=== PATIENT | female | born 1995 | race Asian ===

== ENCOUNTER 2023-07-23 05:36 | Emergency (ER) | payer OTHER, SELFPAY ==
--- NOTE | 2023-07-23 05:39 | ED.GENADULT ---
HPI - General Adult General Chief complaint: Abdominal Pain Stated complaint: abd pain, dizzy, light headed Time Seen by Provider: 07/23/23 05:39 History of Present Illness HPI narrative: 27-year-old female nonsmoker with noncontributory medical history presents with her significant other and a chief complaint of gradually worsening lower, if not right lower quadrant pain over the past few hours. She states she was in her normal state of health yesterday and went to bed feeling fine, without pain or nausea. She awoke this morning with periumbilical pain that seems to be worsening in her lower abdomen over the past few hours. It is worse when she moves and improves with rest. Standing seems to worsen the pain and makes her a bit lightheaded. She states that the car ride and she felt quite uncomfortable but remaining still she is okay. She denies fever or chills. She is had no constipation or diarrhea. She denies any dysuria, frequency or urgency. She denies vaginal bleeding or discharge. Her last period was about 2 weeks ago and normal for her. She denies any history of the same, she has no history of abdominal surgeries. Related Data Previous Rx's Medication Instructions Recorded cephalexin 500 mg capsule 500 mg PO Q6H 7 days #28 caps 07/23/23 ketorolac 10 mg tablet 10 mg PO Q6H PRN pain #14 tabs 07/23/23 ondansetron 4 mg disintegrating 4 mg PO TID-QID PRN nausea and 07/23/23 tablet vomiting #10 tabs Allergies Allergy/AdvReac Type Severity Reaction Status Date / Time jorge Allergy Verified 07/23/23 05:49 Review of Systems Review of Systems Narrative: GENERAL: Denies chills, fatigue, malaise, fever, sweats. HEENT: Denies sinus pain, ear pain, sore throat, difficulty swallowing, dizziness. RESPIRATORY: Denies dyspnea, cough, wheezing, hemoptysis, sputum. CARDIOVASCULAR: Denies chest pain, palpitations, orthopnea, edema, GASTROINTESTINAL: See HPI : See HPI MUSCULOSKELETAL: denies weakness, joint pain, or bony pain SKIN: Denies rash, skin lesions, or other NEUROLOGIC: Denies weakness, headache, numbness, change in speech, confusion, seizures, incoordination. PSYCHIATRIC: No concerning psychosocial issues. 12 point review of systems is negative except for those stated above Exam Narrative Exam Narrative: GENERAL: [27] year old patient appears stated age. Well-developed patient, in mild distress. HEAD: Atraumatic. Normocephalic. EYES: Pupils equal round and reactive. Extraocular motions intact. No scleral icterus. No injection or drainage. ENT: Nose without bleeding, purulent drainage. Throat without erythema, tonsillar hypertrophy or exudate. Airway patent. NECK: Trachea midline. Non tender CARDIOVASCULAR: Regular rate and rhythm without murmurs, gallops, or rubs. RESPIRATORY: Clear to auscultation. Breath sounds equal bilaterally. No wheezes, rales, or rhonchi. GASTROINTESTINAL: Abdomen soft, tender in the suprapubic region, perhaps right lower quadrant greater than left, negative heel tap, psoas or obturator nondistended. EXTREMITIES: No edema or joint tenderness. BACK: Nontender without deformity or crepitance. No flank tenderness. NEURO: AOx3. SKIN: No rash or erythema of visible areas Initial Vital Signs Initial Vital Signs: Vital Signs Temperature 98.6 F 07/23/23 05:45 Pulse Rate 80 07/23/23 05:45 Respiratory Rate 16 07/23/23 05:45 Blood Pressure 113/71 07/23/23 05:45 Pulse Oximetry 100 07/23/23 05:45 Oxygen Delivery Method Room Air 07/23/23 05:45 Course Orders Ordered: Discontinued Medications Cefazolin Sodium (Cephalexin 250 Mg Cap Prepack) [address] [facility] [place] Stop: 07/23/23 06:23 Last Admin: 07/23/23 06:29 Dose: 1 bottle Documented By: Sodium Chloride (Normal Saline 0.9%) 1,000 mls @ 1,000 mls/hr IV BOLUS ONE Stop: 07/23/23 06:44 Last Infusion: 07/23/23 06:56 Dose: 0 mls/hr Documented By: Admin: 07/23/23 05:53 Dose: 1,000 mls/hr Documented By: Ketorolac Tromethamine (Ketorolac 30 Mg/Ml Vial) 15 mg IV NOW ONE Stop: 07/23/23 06:23 Last Admin: 07/23/23 06:29 Dose: 15 mg Documented By: Ondansetron HCl (Ondansetron 4 Mg Odt Prepack) 1 bottle MISC [facility] ONE Stop: 07/23/23 06:23 Last Admin: 07/23/23 06:30 Dose: Not Given Documented By: Medical Decision Making Lab Data 07/23/23 05:40 07/23/23 05:40 Labs: Lab Results 07/23/23 07/23/23 07/23/23 Range/Units 05:40 05:40 06:04 WBC 6.0 (4.5-11.0) X10^3/uL RBC 4.39 (4.0-5.2) X10^6/uL Hgb 13.4 (12.0-16.0) g/dL Hct 40.0 (36-46) % MCV 91.0 (80-100) fL MCH 30.5 (26-34) PG MCHC 33.5 (30-36) % RDW 13.8 (11.6-14.8) % Plt Count 207 (150-400) X10^3/uL Neut % (Auto) 38.3 L (50-75) % Lymph % (Auto) 47.2 H (25-40) % [place] % (Auto) 8.2 (3-14) % Eos % (Auto) 5.1 H (2-4) % Baso % (Auto) 1.2 (0-2) % Neut # (Auto) 2300 (8288-5461) /uL Lymph # (Auto) 2800 (7253-7003) /uL [place]ata # (Auto) 500 (0-900) /uL Eos # (Auto) 300 (0-450) /uL Baso # (Auto) 100 (0-100) /uL Sodium 138 (137-145) mmol/L Potassium 3.8 (3.4-5.1) mmol/L Chloride 105 (98-107) mmol/L Carbon Dioxide 24 (22-32) mmol/L BUN 9 (7-17) mg/dL Creatinine 0.76 (0.52-1.04) mg/dL Estimated GFR > 60 (>60) mL/min BUN/Creatinine Ratio 11.8 (6-22) Glucose 98 (70-100) mg/dL Calcium 9.3 (8.4-10.2) mg/dL Total Bilirubin 0.3 (0.2-1.3) mg/dL AST 26 (14-36) IU/L ALT 27 (<35) IU/L Alkaline Phosphatase 65 (38-126) U/L Total Protein 7.9 (6.3-8.2) g/dL Albumin 4.6 (3.5-5.0) g/dL Globulin 3.3 (1.7-4.1) g/dL Albumin/Globulin Ratio 1.4 (1.0-2.8) Lipase 96 (23-300) U/L Urine Color Yellow Urine Appearance Clear Urine pH 5.5 (4.5-8.0) Ur Specific [place] 1.020 (1.000-1.035) Urine Protein Negative (Negative) Urine Glucose (UA) Negative (Negative) g/dL Urine Ketones Negative (NEGATIVE) Urine Occult Blood Negative (Negative) Urine Nitrate Positive H (Negative) Urine Bilirubin Negative (NEGATIVE) Urine Urobilinogen 0.2 (0.2) E.U./dL Ur Leukocyte Esterase 1+ H (NEGATIVE) Urine RBC None seen (0-5/HPF) Urine WBC 30-100/hpf H (0-5/HPF) Ur Squamous Epith Cells 5-10 /hpf H (0-5/HPF) Urine Bacteria Many (>30) H (None) Ur Culture Indicated? Specimen cultured Point of Care Testing Test Results Negative Urine Dip Bedside Urine Glucose Negative Bedside Urine Bilirubin - Negative Bedside Urine Ketone - Negative Urine Specific [place] 1.025 Bedside Urine pH 6.0 Bedside Urine Protein - Negative Bedside Urine Urobilinogen - Negative Bedside Urine Nitrite + Positive Bedside Urine Leukocytes + 70 Esterase Point of care testing: Point of Care Testing Test Results Negative Urine Dip Bedside Urine Glucose Negative Bedside Urine Bilirubin - Negative Bedside Urine Ketone - Negative Urine Specific [place] 1.025 Bedside Urine pH 6.0 Bedside Urine Protein - Negative Bedside Urine Urobilinogen - Negative Bedside Urine Nitrite + Positive Bedside Urine Leukocytes + 70 Esterase MDM Narrative Medical decision making narrative: CC: 27-year-old female with lower abdominal right lower quadrant pain Complicating co-morbidities: None known Data collected from: Patient Medical records reviewed: Prior notes reviewed in our EMR Differential considered, but not limited to: Ovarian cyst versus appendicitis versus UTI versus kidney stone versus other Exam documented above, pertinent findings include: Appears uncomfortable, heart rate regular, lungs clear, tender to palpate in the right lower quadrant with localized guarding, negative heel tap, obturator and psoas Lab Test results independently reviewed as above. Pertinent findings: No white count or left shift, no signs of anemia, renal functions and electrolytes as well as LFTs within normal limits Imaging studies independently reviewed: Right ovarian cyst noted, likely hemorrhagic Treatments: Fluids, Toradol, antibiotics Re-evaluations: Pain well controlled, minimal if any symptoms, no longer dizzy upon standing. Discussion: 27-year-old female with right lower quadrant pain, no signs of sepsis, multiple diagnoses considered as noted above. Patient is not , no ectopic, sudden onset of symptoms, lack of systemic complaints, lack of fever, lack of leukocytosis all would suggest against the likelihood of appendicitis though we did discuss this could potentially be an early presentation. Given all other circumstances we elected to hold off on a CT scan for now and treat for ovarian cyst pain and UTI. Patient given extensive return precautions including strong recommendation to follow-up with carton forming machine tender upon her return to [place] in a week or so Disposition: see below, along with detailed discharge instructions that have been reviewed with patient as well as indications for ED re-evaluation and additional outpatient follow up Discharge Plan Departure Patient Disposition: Home Clinical Impression: UTI (urinary tract infection), Ovarian cyst Instructions: DI for Urinary Tract Infection (UTI), DI for Ovarian Cyst Activity Restrictions/Additional Instructions: *You have been diagnosed with [right ovarian cyst and urinary tract infection. As we discussed your history and physical exam as well as labs are very reassuring and though an early appendicitis can not be completely ruled out it seems extremely unlikely in the setting of these other findings.] *What to do: *Please continue to take your regular medications as directed. [ x] New medication prescriptions sent to your pharmacy: [[facility] ] [ ] New medication written as a paper prescription [ ] No new medications given *Please follow up with your primary care provider in 2-3 days, call for an appointment. Let them know you were seen in the Emergency Department and that we ask that you be seen in follow up. We will electronically transmit a record of today's note if your PCP is in our system *If you do not have a primary care provider please contact the [facility] Resource line at [phone]. They will ask some questions about your medical history and help get you set up with a doctor in the community. *Return to Emergency Department if you should have any new, worsening or concerning symptoms, such as [fever greater than 101 F, shaking chills, worsening pain, persistent vomiting or other bothersome symptoms] Prescriptions: New ketorolac 10 mg tablet 10 mg PO Q6H PRN (Reason: pain) Qty: 14 0RF cephalexin 500 mg capsule 500 mg PO Q6H 7 Days Qty: 28 0RF ondansetron 4 mg tablet,disintegrating 4 mg PO TID-QID PRN (Reason: nausea and vomiting) Qty: 10 0RF Stand Alone Forms: Patient Portal/API
[2023-07-23 05:45] VITALS: BP 113/71; PULSE 80; RESP 16; TEMP 37; O2SAT 100; BMI 18.3
--- NOTE | 2023-07-23 05:45 | DI.US.S_ITS ---
PROCEDURE: US PELVIC COMPLETE INDICATIONS: RIGHT PELVIC PAIN TECHNIQUE: Real-time scanning was performed of the pelvic organs, with image documentation. Additional endovaginal scanning was necessary due to incomplete visualization of the adnexal and endometrial structures by transabdominal scanning. COMPARISON: None. FINDINGS: Uterus: Uterus is anteverted and normal in size at 8.2 x 4.9 x 3.6 cm. The myometrium is homogeneous. The endometrium measures 9 mm combined thickness. No fibroids seen. Ovaries: The right ovary measures 4.8 x 4.1 x 2.3 cm, with a calculated ovarian volume of 24 cc. The left ovary measures 3.1 x 2.9 x 1.4 cm, with a calculated ovarian volume of 6 cc. Less than 12 follicles can be seen in each ovary. Blood flow is seen in both ovaries. Right ovarian crenulated cyst measuring 3.1 x 2 x 1.4 cm. Heterogeneous echotexture. Unilocular. No posterior acoustic features. No internal vascularity. Other: Trace free fluid in the pelvic cul-de-sac. Approximately 20 cc. Scant internal echoes.. The appendix is not identified. IMPRESSION: 1. Crenulated right ovarian cyst measuring 3.1 cm. No internal vascularity. Suspect a hemorrhagic cyst. O-Rads 2. Almost certainly benign. Recommend follow-up pelvic ultrasound in 8-12 weeks. 2. Trace free fluid in the pelvis. This report is concordant with the overnight preliminary interpretation. We strive to produce accurate, complete, and clear reports of imaging services. To assist us in improving patient care, this report was composed using standard report templates and voice recognition software. Therefore, it may contain abnormal punctuation, insertions and/or omissions. Occasional wrong-word or sound-alike substitutions may occur. Though we review the report and make efforts to correct it, we do recommend that the report be read carefully in proper context to recognize any text inaccuracies. Dictated by: Ruiz Arthur M.D. on 07/23/2023 at 8:13 Approved by: Ruiz Arthur M.D. on 07/23/2023 at 8:21
[2023-07-23] MEDS: SODIUM CHLORIDE 0.9% 1,000 ML 1000 ML IV (05:53)
[2023-07-23 05:55] LABS: Add Manual Diff / Slide Review NO; Basophils Absolute Auto 100 /uL (0-100); Basophils Percent Auto 1.2 % (0-2); Eosinophils Absolute Auto 300 /uL (0-450); Eosinophils Percent Auto 5.1 % (2-4); Hemoglobin 13.4 g/dL (12.0-16.0); Lymphocytes Absolute Auto 2800 /uL (1100-4500); Lymphocytes Percent Auto 47.2 % (25-40); Mean Corpuscular HGB Conc 33.5 % (30-36); Mean Corpuscular Hemoglobin 30.5 PG (26-34); Monocytes Absolute Auto 500 /uL (0-900); Monocytes Percent Auto 8.2 % (3-14); Neutrophils Absolute Auto 2300 /uL (1500-7000); Neutrophils Percent Auto 38.3 % (50-75); Platelet Count 207 X10^3/uL (150-400); Red Blood Cell Count 4.39 X10^6/uL (4.0-5.2); Red Cell Distribution Width 13.8 % (11.6-14.8)
[2023-07-23 06:06] LABS: Alanine Aminotransferase 27 IU/L (<35); Albumin 4.6 g/dL (3.5-5.0); Albumin Globulin Ratio 1.4 (1.0-2.8); Alkaline Phosphatase 65 U/L (38-126); Aspartate Aminotransferase 26 IU/L (14-36); BUN Creatinine Ratio 11.8 (6-22); Bilirubin Total 0.3 mg/dL (0.2-1.3); Blood Urea Nitrogen 9 mg/dL (7-17); Calcium 9.3 mg/dL (8.4-10.2); Carbon Dioxide 24 mmol/L (22-32); Chloride 105 mmol/L (98-107); Estimated Glomerular Filt Rate > 60 mL/min (>60); Globulin 3.3 g/dL (1.7-4.1); Glucose 98 mg/dL (70-100); HEMOLYSIS < 15 (0-50); Lipase 96 U/L (23-300); Potassium 3.8 mmol/L (3.4-5.1); Sodium 138 mmol/L (137-145); Total Protein 7.9 g/dL (6.3-8.2)
[2023-07-23 06:09] LABS: Appearance Urine UA CLEAR; Bilirubin Urine UA NEGATIVE (NEGATIVE); Color Urine UA YELLOW; Glucose Urine UA NEGATIVE (Negative); Ketones Urine UA NEGATIVE (NEGATIVE); Leukocyte Esterase Urine UA 1+ (NEGATIVE); Nitrite Urine UA POSITIVE (Negative); Occult Blood Urine UA NEGATIVE (Negative); Protein Urine UA NEGATIVE (Negative); Urobilinogen Urine UA 0.2 E.U./dL (0.2)
[2023-07-23 06:11] LABS: pH Urine UA 5.5 (4.5-8.0)
[2023-07-23 06:19] LABS: Bacteria Urine Many (>30); Culture Indicated Urine Specimen Cultured; RBC Urine None Seen (0-5/HPF); Squamous Epithelial Cell Urine 5-10 /HPF (0-5/HPF); WBC Urine 30-100/HPF (0-5/HPF)
[2023-07-23] MEDS: cephALEXin 250 MG CAP PREPACK 1 BOTTLE MISC (06:29)
[2023-07-23] MEDS: KETOROLAC 30 MG/ML VIAL 15 MG IV (06:29)
[2023-07-23 06:57] VITALS: BP 99/56; PULSE 65; RESP 16; O2SAT 100
== END 2023-07-23 06:58 | disposition home or self-care (01) ==
PROVIDERS: Emergency Provider Emergency Medicine
DX: N39.0 Urinary tract infection, site not specified (principal); N83.201 Unspecified ovarian cyst, right side
CPT/HCPCS: 36415; 76830; 76856; 80053; 81001; 81003; 81025; 83690; 85025; 87077; 87086; 87186; 93975; 96361; 96374; 99284; J1885

== ENCOUNTER → 2024-08-19 10:50 | Outpatient (CLI) | payer OTHER, SELFPAY ==
[2024-08-19 12:45] LABS: Add Manual Diff / Slide Review NO; Basophils Absolute Auto 0 /uL (0-100); Basophils Percent Auto 0.3 % (0-2); Eosinophils Absolute Auto 100 /uL (0-450); Eosinophils Percent Auto 0.9 % (2-4); Hematocrit 41.6 % (36-46); Lymphocytes Absolute Auto 1900 /uL (1100-4500); Lymphocytes Percent Auto 16.5 % (25-40); Mean Corpuscular HGB Conc 33.6 % (30-36); Mean Corpuscular Hemoglobin 31.2 PG (26-34); Mean Corpuscular Volume 92.9 fL (80-100); Monocytes Absolute Auto 600 /uL (0-900); Monocytes Percent Auto 5.6 % (3-14); Neutrophils Absolute Auto 8700 /uL (1500-7000); Neutrophils Percent Auto 76.7 % (50-75); Platelet Count 260 X10^3/uL (150-400); Red Blood Cell Count 4.47 X10^6/uL (4.0-5.2); Red Cell Distribution Width 13.3 % (11.6-14.8); White Blood Cell Count 11.4 X10^3/uL (4.5-11.0)
[2024-08-19 13:08] LABS: Natera Collection Specimen Collected
[2024-08-19 14:35] LABS: Hepatitis B Surface Antigen NEGATIVE s/c (NEGATIVE); Rubella Antibody IgG 38.3 IU/mL (>15)
[2024-08-19 14:37] LABS: HIV 1 & 2 Ab/Ag 4th Gen Combo NEGATIVE (NEGATIVE); Hep C Virus Ab w/Reflex Quant NEGATIVE s/c (NEGATIVE)
[2024-08-20 08:11] LABS: RPR Screen Non Reactive (Non Reactive)
[2024-08-20 11:36] LABS: Varicella IgG Antibody Reactive (Non Reactive)
== END ==
LOC: LAB 10:52
PROVIDERS: PCP Student in an Organized Health Care Education/Training Program; Referring Provider Student in an Organized Health Care Education/Training Program; Visit Provider Student in an Organized Health Care Education/Training Program
DX: Z34.01 Encounter for supervision of normal first pregnancy, first trimester (principal)
CPT/HCPCS: 36415; 80055; 86787; 86803; 86850; 86900; 86901; 87389

== ENCOUNTER → 2024-11-02 10:38 | Outpatient (CLI) | payer OTHER, SELFPAY ==
--- NOTE | 2024-11-02 10:39 | DI.US.S_ITS ---
PROCEDURE: US OB >= 14 WEEKS FETUS INDICATIONS: 20 week Anatomy Scan OUTSIDE/PRIOR DATING DATA: Last menstrual period (LMP): June 03, 2024. LMP-based estimated date of delivery (REGAN): March 10, 2025. First dating scan (date and location): November 02, 2024. Estimated date of delivery (REGAN) from first dating scan: March 07, 2025. The calculations are made using the LMP REGAN of March 10, 2025. TECHNIQUE: Real-time scanning was performed of the fetus, with image documentation and biometric measurements. Endovaginal scanning: Not performed COMPARISON: None. FINDINGS: General: A single living intrauterine gestation is present. Presentation: Vertex. Placenta: Placental position is anterior , without previa. Multiple venous lakes are noted within the placenta. Amniotic fluid index: 11.8 cm, normal range is 5-24 cm. Single deepest vertical pocket is 4.5 cm. heart rate: 145 beats per minute. Maternal cervical canal: 3.2 cm long. Normal lower limit is 2.5 cm. biometrics: Biparietal diameter: 5.4 cm, 22 weeks and 3 days Head circumference: 20.5 cm, 22 weeks and 5 days Abdominal circumference: 17.9 cm, 22 weeks and 5 days Femur length: 3.7 cm, 21 weeks and 5 days Clinically estimated gestational age: 21 weeks and 5 days Composite gestational age from present scan: 22 weeks and 3 days Estimated weight and percentile: 495 g which correlates with the 76th percentile for gestational age Anatomic survey: Neuro: Ventricles are non-dilated at less than 10 mm. Cisterna magna is normal at 3-11 mm. Cerebellum is normal in size and morphology. Bilateral choroid plexus cysts visualized measuring approximately 11 mm on the left and 9 mm on the right.. Nuchal skin fold: Normal at less than 6 mm between 14-21 weeks gestational age. Face: Nose and lips, facial profile are normal. Spine: No evidence for spina bifida. Heart: 4-chambered heart is present, with normal ventricular outflow tracts. Diaphragm: Diaphragm is intact. Stomach: Left-sided stomach is present. Kidneys: No hydronephrosis. Normal is less than 5 mm in 2nd trimester, less than 7 mm in 3rd trimester. Cord: 3-vessel cord has orthotopic insertion. Bladder: Normal in size. Extremities: All 4 extremities identified. IMPRESSION: Single living intrauterine gestation with estimated sonographic gestational age of approximately 22 weeks and 3 days. This measures concordant with estimated gestational age by last menstrual period of approximately 21 weeks and 5 days. Estimated weight of approximately 495 g which correlates with the 76 percentile for gestational age. Incidental note of bilateral choroid plexus cysts without other anatomic abnormalities identified. As an incidental isolated finding, this is a likely transient benign finding. However, recommend clinical correlation with maternal risk factors for Trisomy 18. We strive to produce accurate, complete, and clear reports of imaging services. To assist us in improving patient care, this report was composed using standard report templates and voice recognition software. Therefore, it may contain abnormal punctuation, insertions and/or omissions. Occasional wrong-word or sound-alike substitutions may occur. Though we review the report and make efforts to correct it, we do recommend that the report be read carefully in proper context to recognize any text inaccuracies. Dictated by: Mike Valle M.D. on 11/02/2024 at 19:35 Approved by: Mike Valle M.D. on 11/02/2024 at 19:45
== END ==
PROVIDERS: PCP Student in an Organized Health Care Education/Training Program; Referring Provider Student in an Organized Health Care Education/Training Program; Visit Provider Student in an Organized Health Care Education/Training Program
DX: Z36.89 Encounter for other specified antenatal screening (principal); Z3A.22 22 weeks gestation of pregnancy
CPT/HCPCS: 76811

== ENCOUNTER → 2024-12-06 07:11 | Outpatient (CLI) | payer OTHER, SELFPAY ==
[2024-12-06 09:34] LABS: Hematocrit 39.4 % (36-46); Hemoglobin 13.3 g/dL (12.0-16.0)
[2024-12-06 10:02] LABS: GTT (PREG) 1 Hour PP 50gm Dose 119 mg/dL (76-139)
== END ==
PROVIDERS: PCP Student in an Organized Health Care Education/Training Program; Referring Provider Student in an Organized Health Care Education/Training Program; Visit Provider Student in an Organized Health Care Education/Training Program
DX: Z34.82 Encounter for supervision of other normal pregnancy, second trimester (principal); Z3A.24 24 weeks gestation of pregnancy
CPT/HCPCS: 36415; 82950; 85014; 85018

== ENCOUNTER → 2025-01-18 08:35 | Outpatient (CLI) | payer OTHER, SELFPAY ==
--- NOTE | 2025-01-18 08:36 | DI.US.S_ITS ---
PROCEDURE: US OB LIMITED INDICATIONS: Growth US OUTSIDE/PRIOR DATING DATA: Last menstrual period (LMP): 06/03/2024 LMP-based estimated date of delivery (REGAN): 03/10/2025 Estimated date of delivery (REGAN) from first dating scan: 03/07/2025 The calculations are made using the working REGAN of 03/10/2025. TECHNIQUE: Real-time scanning was performed of the fetus, with image documentation and biometric measurements. Endovaginal scanning: Not performed COMPARISON: None. FINDINGS: General: A single living intrauterine gestation is present. Presentation: Vertex Placenta: Placental position is anterior, without previa. Prominent size of the placenta with heterogeneous signal and numerous venous lakes measures up to 10.7 x 15.0 x 3.6 cm in size. Amniotic fluid index: 16.5 cm, normal range is 5-24 cm. Single deepest vertical pocket is 7.9 cm. heart rate: 125 beats per minute. Maternal cervical canal: Not well seen. biometrics: Biparietal diameter: 8.5 cm, 34 weeks, 1 day. Head circumference: 30.5 cm, 34 weeks, 0 day. Abdominal circumference: 29.1 cm, 33 weeks, 1 day. Femur length: 6.3 cm, 32 weeks, 5 days. Clinically estimated gestational age: 32 weeks, 5 days Composite gestational age from present scan: 33 weeks, 4 days. Estimated weight and percentile: 2132 g, 54%. IMPRESSION: 1. Single live intrauterine gestation with fetus in vertex presentation. heart rate is 125 beats per minute. Normal amount of amniotic fluid. BEBO is 16.5 cm. 2. Normal growth with estimated weight of 54%. 3. Prominent size of anteriorly positioned placenta without placenta previa. Multiple venous lakes as above. We strive to produce accurate, complete, and clear reports of imaging services. To assist us in improving patient care, this report was composed using standard report templates and voice recognition software. Therefore, it may contain abnormal punctuation, insertions and/or omissions. Occasional wrong-word or sound-alike substitutions may occur. Though we review the report and make efforts to correct it, we do recommend that the report be read carefully in proper context to recognize any text inaccuracies. Dictated by: Memo Fishman M.D. on 01/18/2025 at 10:29 Approved by: Memo Fishman M.D. on 01/18/2025 at 10:49
== END ==
PROVIDERS: PCP Student in an Organized Health Care Education/Training Program; Referring Provider Student in an Organized Health Care Education/Training Program; Visit Provider Student in an Organized Health Care Education/Training Program
DX: Z36.89 Encounter for other specified antenatal screening (principal); Z3A.27 27 weeks gestation of pregnancy
CPT/HCPCS: 76815

== ENCOUNTER → 2025-02-14 09:03 | Outpatient (CLI) | payer OTHER, SELFPAY ==
[2025-02-15 11:00] LABS: Strep Grp B PCR NEG for Grp B Strep
== END ==
PROVIDERS: PCP Student in an Organized Health Care Education/Training Program; Referring Provider Student in an Organized Health Care Education/Training Program; Visit Provider Student in an Organized Health Care Education/Training Program
DX: Z34.00 Encounter for supervision of normal first pregnancy, unspecified trimester (principal)
CPT/HCPCS: 87653

== ENCOUNTER 2025-03-08 16:51 | Outpatient (CLI) | payer OTHER, SELFPAY ==
--- NOTE | 2025-03-08 20:55 | P.TNLD_ITS ---
Visit Information Visit Information Date of evaluation: 03/08/25 Primary OB Provider: Tori Cortes On-call OB Provider: Tori Cortes Reason for Evaluation: Yes rupture of membranes Comments/Additional reasons for admission: 29 yo G1 at 39w5d presenting with PROM. Clear fluid. Good movement. Contractions every now and then that are painful. [facility] Medical History (Updated 07/13/24 @ 14:38 by Emma Cuellar RN) Ovarian cyst Surgical History (Updated 07/13/24 @ 14:38 by Emma Cuellar RN) H/O wrist surgery Family History (Updated 07/13/24 @ 14:41 by Emma Cuellar RN) Mother Hypotension Father Hypertension Skin cancer (melanoma) Grandmother Polycystic kidney disease Social History marital status: details: : Jake Baker number of children: 0 household members: spouse lives independently: Yes caregiver/support person: No housing: house pets and animals: No education level: college occupational status: employed current occupational exposures/hazards: No special treva needs: No travel history: other seatbelt use: always helmet use: Yes (Bikes, always wears helmet ) water heater temp set < 120 deg: Yes working smoke detector in home: Yes fire extinguisher in home: Yes carbon monox detector in home: Yes firearms in home: Yes firearms unloaded and locked: Yes do you feel safe at home: Yes second hand exposure: No alcohol intake: never substance use type: does not use during the past year weight has: remained stable well-balanced diet: daily or most days daily servings fruits/ve or more times/day caffeine: No Type(s) of exercise: walking, bicycling and weight lifting frequency: 5-6 times per week Exam Narrative Exam Narrative: Grossly ruptured, clear fluid. Evaluation Evaluation Baseline heart rate: 135 Variability: Average (6-10) monitor accelerations: Present Monitor Decelerations: Absent Contraction Frequency (minutes): 6 Uterine Contraction Intensity: Mild Category of Tracing: Reactive Status: Category l Cervical dilation (cm): 3 station: -2 Non-invasive Membranes Rupture Test: positive Diagnosis, Plan/Disposition Plan/Disposition Plan: 29 yo G1 at 39w5d here with positive amnisure. NST reactive and cat 1, patient would like to discharge home and return when contractions become more painful. Patient lives 5 minutes from hospital. Return precautions given. Patient to return in 12 hours if no painful contractions by then. OB Disposition: home
== END 2025-03-08 17:30 | disposition home or self-care (01) ==
LOC: LABOR 17:33 → OB 03-09 06:18
PROVIDERS: PCP Student in an Organized Health Care Education/Training Program; Referring Provider Student in an Organized Health Care Education/Training Program; Visit Provider Student in an Organized Health Care Education/Training Program
DX: O42.92 Full-term premature rupture of membranes, unspecified as to length of time between rupture and onset of labor (principal); Z3A.39 39 weeks gestation of pregnancy
CPT/HCPCS: 59025; 84112; G0378; G0379

== ENCOUNTER 2025-03-08 23:38 | Inpatient (IN) | payer OTHER, SELFPAY ==
[2025-03-09 00:28] VITALS: BP 120/71
[2025-03-09 01:00] LABS: Add Manual Diff / Slide Review NO; Basophils Absolute Auto 100 /uL (0-100); Basophils Percent Auto 0.5 % (0-2); Eosinophils Absolute Auto 100 /uL (0-450); Eosinophils Percent Auto 0.7 % (2-4); Hematocrit 37.7 % (36-46); Hemoglobin 13.3 g/dL (12.0-16.0); Lymphocytes Absolute Auto 1900 /uL (1100-4500); Lymphocytes Percent Auto 17.9 % (25-40); Mean Corpuscular HGB Conc 35.3 % (30-36); Mean Corpuscular Hemoglobin 33.7 PG (26-34); Mean Corpuscular Volume 95.6 fL (80-100); Monocytes Absolute Auto 900 /uL (0-900); Monocytes Percent Auto 8.7 % (3-14); Neutrophils Absolute Auto 7600 /uL (1500-7000); Neutrophils Percent Auto 72.2 % (50-75); Platelet Count 167 X10^3/uL (150-400); Red Blood Cell Count 3.95 X10^6/uL (4.0-5.2); Red Cell Distribution Width 13.6 % (11.6-14.8); White Blood Cell Count 10.5 X10^3/uL (4.5-11.0)
[2025-03-09] MEDS: LACTATED RINGERS 1,000 ML 100 ML IV ×2 (05:34→10:56)
[2025-03-09] MEDS: OXYTOCIN PREMIX 30 UNIT/500 ML PLAST..BAG IV (05:35)
--- NOTE | 2025-03-09 09:10 | P.HPOB_ITS ---
OB HPI Date/Time Date of admission: 03/08/25 History of Present Condition Chief complaint: OB REGAN Calculator 2 Estimated Delivery Date Method Current WG Current Estimate 03/10/25 LMP (Certain) 39w 6d Other Estimates 03/07/25 Ultrasound #1 40w 2d : 1 Para: 0 Narrative: This is a 29 yo G1 at 39w5d who presents with PROM. Membranes ruptured at 5pm, NST reactive so patient elected to go home, came back 6 hours later. Contractions still not painful. Good movement. care: good care Dating criteria OB: LMP confirmed by 1st trimester US Ultrasounds: normal 1st trimester US and normal mid trimester US Obstetrical complications: none Medical complications OB: none Preadmission Labs Last OB Lab Results: 2 Blood Type O Positive 03/09/25 00:45 Antibody Screen Negative 03/09/25 00:45 Hct 37.7 % (36-46) 03/09/25 00:45 Hgb 13.3 g/dL (12.0-16.0) 03/09/25 00:45 Hep Bs Antigen Negative s/c (NEGATIVE) 08/19/24 12:08 Hepatitis C Antibody Negative s/c (NEGATIVE) 08/19/24 12:08 Rubella Antibody 38.3 IU/mL (>15) 08/19/24 12:08 VZV IgG Antibody Reactive (Non Reactive) 08/19/24 12:08 Glucose 1 Hr 50 gm 119 mg/dL (76-139) 12/06/24 07:15 Group B Strep (PCR) Neg for grp b strep 02/14/25 09:03 Glucose Tolerance Testin hr Genetic Screens: Cell-free DNA: Normal Evaluation Evaluation Baseline heart rate: 145 Variability: Average (6-10) monitor accelerations: Present Monitor Decelerations: Absent Contraction Frequency (minutes): 8 Uterine Contraction Intensity: Mild Category of Tracing: Reactive Status: Category l Dilation (cm): 3 Effacement (%): 70 Dilation: 3-4 cm Effacement: 60-70% station: -1 Position of cervix: mid Consistency: soft Silva score: 9 PFSH Medical History (Updated 07/13/24 @ 14:38 by Emma Cuellar RN) Ovarian cyst Surgical History (Updated 07/13/24 @ 14:38 by Emma Cuellar RN) H/O wrist surgery Family History (Updated 07/13/24 @ 14:41 by Emma Cuellar RN) Mother Hypotension Father Hypertension Skin cancer (melanoma) Grandmother Polycystic kidney disease Social History marital status: details: : Jake Baker number of children: 0 household members: spouse lives independently: Yes caregiver/support person: No housing: house pets and animals: No education level: college occupational status: employed current occupational exposures/hazards: No special treva needs: No travel history: other seatbelt use: always helmet use: Yes (Bikes, always wears helmet ) water heater temp set < 120 deg: Yes working smoke detector in home: Yes fire extinguisher in home: Yes carbon monox detector in home: Yes firearms in home: Yes firearms unloaded and locked: Yes do you feel safe at home: Yes Smoking Status: Never smoker second hand exposure: No alcohol intake: never substance use type: does not use during the past year weight has: remained stable well-balanced diet: daily or most days daily servings fruits/ve or more times/day caffeine: No Type(s) of exercise: walking, bicycling and weight lifting frequency: 5-6 times per week Meds Home Medications and Allergies Home Medications Medication Instructions Recorded Confirmed Type Choline 800mg PO 07/13/24 03/07/25 History Fish oil 1,,000mg PO 07/13/24 03/07/25 History vits no.126-ferrous fum tab PO 07/13/24 03/07/25 History 28 mg iron-folic acid 800 mcg tablet (Classic ) Allergies Allergy/AdvReac Type Severity Reaction Status Date / Time jorge Allergy Verified 03/09/25 00:29 OB Exam Narrative Exam Narrative: NAD Objective Labs 03/09/25 00:45 Labs: Laboratory Results - last 24 hr 03/09/25 00:45 WBC 10.5 RBC 3.95 L Hgb 13.3 Hct 37.7 MCV 95.6 MCH 33.7 MCHC 35.3 RDW 13.6 Plt Count 167 Neut % (Auto) 72.2 Lymph % (Auto) 17.9 L [place] % (Auto) 8.7 Eos % (Auto) 0.7 L Baso % (Auto) 0.5 Neut # (Auto) 7600 H Lymph # (Auto) 1900 [place] # (Auto) 900 Eos # (Auto) 100 Baso # (Auto) 100 Blood Type O Positive Antibody Screen Negative Assessment and Plan Assessment and Plan Assessment and Plan narrative: 29 yo G1 at 39w5d here for PROM. No painful contractions. SVE /-1. Patient elects to wait until 12 hours post rupture to start pitocin. -admit for labor -pitocin to be started at 5am -GBS neg Time-Based Coding :: 30 min spent with patient and on the chart (including review of chart, obtaining history, exam, reviewing outside data, placing orders, documenting exam and treatment plan, and counseling patient) on 03/09/25.
--- NOTE | 2025-03-09 09:14 | PM.OBPNLAB ---
Date/Time Date Patient Seen: 03/09/25 Time Patient Seen: 08:45 Pain Control Pain control: tolerating well Pelvic Exam Dilation (cm): 3 Effacement (%): 70 station: -1 Contractions Contractions on admission: irregular Pitocin rate (mU/min): 8 Contraction frequency (min): 5 Contraction pattern: Irregular Contraction intensity: Mild Status status: Category l Heart Rate Baseline: 145 Monitor Accelerations: Present Monitor Decelerations: Absent Monitor Variability: Moderate Assessment and Plan Assessment: induction ongoing Plan: continuous present management Comments: 29 yo G1 at 39w6d here for PROM. GBS neg. -pitocin started at 5am, currently at 8 -continue titration of pitocin -anticipate vaginal delivery
--- NOTE | 2025-03-09 11:11 | PM.AN.REGBLK ---
Regional Block Pre-procedure Procedure: Continuous Lumbar Epidural for L&D Attending OB provider: Tori Cortes PMH/ROS narrative: ROS negative. G1PO, SROM, 6cm desires epidural PSH/Anesthesia history narrative: None Exam narrative: Mall II, good dentition. ASA Class: II Labs: Hct 37.7 % (36-46) 03/09/25 00:45 Plt Count 167 X10^3/uL (150-400) 03/09/25 00:45 Medications: Current Medications Generic Name Dose Route Start Last Admin Trade Name Freq PRN Reason Stop Dose Admin Calcium Carbonate 1,000 mg 03/09/25 00:04 Calcium Carbonate 500 Mg Tab PO Q2HR PRN Dyspepsia Carboprost Tromethamine 250 mcg 03/09/25 00:04 Carboprost 250 Mcg/Ml Ampul IM Q90M PRN Bleeding Diphenhydramine HCl 25 mg 03/09/25 11:09 Diphenhydramine 50 Mg/Ml Vial IV Q10M PRN Pruritis Ephedrine Sulfate 10 mg 03/09/25 11:09 Ephedrine 50 Mg/Ml Vial IV Q5M PRN Blood pressure decrease more than 20% of baseline. Fentanyl 50 mcg 03/09/25 00:04 Fentanyl 100 Mcg/2 Ml Inj IV Q1H PRN Pain, Moderate (4-6) Oxytocin/Lactated Ringer's 30 unit in 500 mls @ 2 mls/hr 03/09/25 00:15 03/09/25 05:35 Oxytocin Premix IV 2 milliunit/min TITRATE OLLIE 2 mls/hr Administration Protocol 2 MILLIUNIT/MIN Oxytocin/Lactated Ringer's 30 unit in 500 mls @ 200 mls/hr 03/09/25 00:04 Oxytocin Premix IV CONT PRN Bleeding Protocol Tranexamic Acid 1,000 mg/ 100 mls @ 600 mls/hr 03/09/25 00:04 Sodium Chloride IV NOW PRN Bleeding FENT 2MCG/ML BUPIV 0.125% EPI 200 mcg in 100 mls @ 10 mls/hr 03/09/25 11:15 Fentanyl/Bupiv/Ns 2mcg/Ml - 0.125% EPIDURAL CONT OLLIE Lidocaine HCl 20 ml 03/09/25 00:04 Lidocaine 1% 20 Ml INJ INTRA-OP PRN Post Delivery Methylergonovine Maleate 0.2 mg 03/09/25 00:04 Methylergonovine 0.2 Mg/Ml Vial IM NOW PRN Bleeding Methylergonovine Maleate 0.2 mg 03/09/25 00:04 Methylergonovine 0.2 Mg Tablet PO Q6HR PRN Heavy Bleeding Mineral Oil 30 ml 03/09/25 00:04 Mineral Oil 30 Ml Udc TOP PRN PRN Version Misoprostol 400 mcg 03/09/25 00:04 Misoprostol 200 Mcg Tablet SL NOW PRN Bleeding Misoprostol 800 mcg 03/09/25 00:04 Misoprostol 200 Mcg Tablet VT NOW PRN Bleeding Nalbuphine HCl 2.5 mg 03/09/25 11:09 Nalbuphine 20 Mg/Ml Ampul IV Q10M PRN Pruritis Naloxone HCl 0.2 mg 03/09/25 00:04 Naloxone 0.4 Mg/Ml Vial IV Q2MIN PRN Opiate Reversal Ondansetron HCl 4 mg 03/09/25 00:04 Ondansetron 4 Mg/2 Ml Inj IV Q4HR PRN Nausea And Vomiting Oxytocin 10 unit 03/09/25 00:04 Oxytocin 10 Unit/Ml Vial IM NOW PRN Bleeding Allergies: Allergies Allergy/AdvReac Type Severity Reaction Status Date / Time jorge Allergy Verified 03/09/25 00:29 Procedure Insertion date: 03/09/25 Insertion time: 10:42 Prep/Local: 1% lidocaine (chlorhex skin prep, dry x 3min) Interspace: L4-5 Patient position: sitting Needle: 17 gauge Tuohy Loss of resistance with: saline GREGORIA at (cm): 7 Catheter placed at SKIN (cm): 13 Catheter in SPACE (cm): 6 Sensory level: T10 Insertion: No CSF, No Blood, No Paresthesia with insertion, No Paresthesia with injection and No Test dose reaction Initial Medications TEST DOSE time: 10:54 BOLUS DOSE time: 11:03 BOLUS DOSE (mL): 8 BOLUS DOSE med: other (pump solution) Infusion Initial rate (mL/hr): 10 Post-procedure Anesthesia date START: 03/09/25 Anesthesia time START: 10:42 Anesthesia date END: 03/09/25 Anesthesia time END: 12:49 Post-procedure Anesthesia Assessment: Yes CV function: HR/BP stable, Yes Resp function: RR/sat/airway adequate, Yes Post-op hydration adequate, Yes Pain control adequate, Yes Nausea & vomiting absent, Yes Temperature > 36 C, Yes Mental status appropriate and Yes Anesthesia complications
[2025-03-09] MEDS: TRANEXAMIC ACID 1,000 MG in SODIUM CHLORIDE 0.9% 100 ML 200 MG IV (13:13)
--- NOTE | 2025-03-09 13:17 | PM.OBPRVD ---
Labor & Delivery Delivery date: 03/09/25 Delivery Time: 12:49 Intrapartal Events: None Cervical ripening method: none Induction method: none Delivery augmentation: pitocin Delivery monitor: external FHT Route of delivery: L&D Laceration Description: Periurethral - 1st Degree and Perineal - 2nd Degree Estimated blood loss (mL): 250 Anesthesia Type: Epidural Narrative: This is a 29 yo G1 at 39w6d who presented at PROM. GBS negative. She was induced with pitocin. She received an epidural. She was found to be complete and pushed effectively for 15 minutes before delivering a viable male . Cord was clamped and cut by dad at 3 minutes of life. Placenta delivered with suprapubic pressure and gentle cord traction. Pitocin bolus was started after delivery of placenta. There were bilateral periurethral lacerations that were repaired with suture. There was a 1st degree laceration that was repaired with suture. There was ongoing bleeding throughout repairs so TXA was given. Uterus was firm and bleeding slowed. Mom and baby are recovering well. Plan for aftercare: Routine care
[2025-03-10] MEDS: IBUPROFEN 600 MG TABLET PO ×2 (01:48→07:46)
--- NOTE | 2025-03-10 10:20 | PM.OBDS.1 ---
Discharge Providers Provider Date of admission: 03/08/25 23:38 Discharge Date: 03/10/25 Primary care physician: Tori Cortes MD Consults: 03/09/25 00:04 Consult to Anesthesiology Urgent Comment: Consulting Provider: Anesthesiologist Reason for consultation: Epidural 03/10/25 13:15 Consult to Farm Facility Manager Routine Comment: Discharge provider: Tori Cortes MD Summary Hospital Course Date Patient Seen: 03/10/25 Time Patient Seen: 07:30 Diagnoses: Term Hospital Course: This is a 29 yo G1 now P1 who presented at 39w5d with PROM. She was induced with pitocin after contractions did not start 12 hours into rupture of membranes. She delivered at 39w6d via . No complications during , delivery or . well. Bleeding minimal. No concerns. Peripartum Data Infant Delivery Method: Natural Vaginal Laceration Description: Periurethral - 1st Degree and Perineal - 1st Degree complications: none Status at Discharge Cognitive/behavioral status at discharge: oriented Functional status at discharge: independent ambulation Overall status at discharge: patient is back to baseline Time Spent with Patient Time attestation: Total time spent providing and/or coordinating discharge services: 35 Time spent: Greater than 30 minutes Objective Labs 03/09/25 00:45 Exam Narrative Exam Narrative: NAD Discharge Plan Discharge Plan Patient Disposition: Home Discharge orders & Medications Prescriptions: New acetaminophen 325 mg Tablet 650 mg PO Q6HR PRN (Reason: Pain, Mild (1-3)) Qty: 60 0RF docusate sodium 100 mg Capsule 100 mg PO DAILY Qty: 60 0RF ibuprofen 600 mg Tablet 600 mg PO Q6HR PRN (Reason: Pain, Mild (1-3)) Qty: 60 0RF Continued Classic 28 mg iron- 800 mcg tablet PO Fish oil 1,,000mg PO Choline 800mg PO Follow up/Referrals: Tori Cortes MD [Primary Care Provider] - 04/26/25 11:30 am (Please Check in at 11:15am for your 6 week appointment) Visit Report/Discharge Packet Instructions: DI for Hemorrhage, DI for Depression Stand Alone Forms: Discharge: Care, Patient Portal/API, Stroke Signs & Symptoms Discharge Data Primary Care Provider: Tori Cortes
[2025-03-10] MEDS: DOCUSATE 100 MG CAPSULE PO (10:43)
[2025-03-10 13:00] VITALS: BP 120/71; PULSE 77; RESP 16; TEMP 36.5
== END 2025-03-10 13:00 | disposition home or self-care (01) | DRG 807 ==
PROVIDERS: Admitting Provider Student in an Organized Health Care Education/Training Program; PCP Student in an Organized Health Care Education/Training Program; Referring Provider Student in an Organized Health Care Education/Training Program; Visit Provider Student in an Organized Health Care Education/Training Program
DX: O42.02 Full-term premature rupture of membranes, onset of labor within 24 hours of rupture (principal); Z37.0 Single live birth; Z3A.39 39 weeks gestation of pregnancy; Z91.018 Allergy to other foods; O70.0 First degree perineal laceration during delivery
CPT/HCPCS: 59025; 59050; 84112; 85025; 86850; 86900; 86901; G0379; J2590

== ENCOUNTER 2025-09-24 16:30 | Emergency (ER) | payer OTHER, SELFPAY ==
[2025-09-24 16:32] VITALS: BP 109/75; PULSE 86; RESP 16; TEMP 36.6; O2SAT 100; BMI 17.7
--- NOTE | 2025-09-24 19:01 | ED_ITS ---
HPI - Fever General Chief Complaint: Fever Stated Complaint: Developing mastitis? Time Seen by Provider: 09/24/25 18:46 Source: patient Mode of arrival: Ambulatory History of Present Illness HPI Narrative: Patient is a 30-year-old female no pertinent past medical history coming into the ED from home for evaluation of left breast pain, redness erythema states that she is currently , she states that she did note a elevated te mperature of 99.5? F. she denies any other symptoms such as headache visual disturbance chest pain shortness breath nausea vomiting or any other GI/ symptoms time. Related Data Home Medications ?Medication ?Instructions ?Recorded ?Confirmed Choline 800mg PO 07/13/24 04/26/25 Fish oil 1,,000mg PO 07/13/24 04/26/25 vits no.126-ferrous fum tab PO 07/13/2404/26 28 mg iron-folic acid 800 mcg tablet (Classic ) fexofenadine 60 mg-pseudoephedrine 1 tab PO Q12H PRN 0 04/26/25 04/26/25 ER 120 mg tablet,ext.release,12 hr (Maria Luisa-D 12 Hour) Previous Rx's ?Medication ?Instructions ?Recorded cephalexin 500 mg capsule 500 mg PO Q6H 2 weeks #56 ca ps 09/24/25 Allergies Allergy/AdvReac Type Severity Reaction Status Date / Time jorge AdvReac Hives Verified 09/24/25 16:32 Review of Systems Review of Systems Narrative: General: Denies fever, chills, weight loss HEENT: Denies headache, eye drainage, eye irritation, head trauma, sore throat, voice change Cardiovascular: Denies any chest pain, palpitations, tachycardia Respiratory: Denies any shortness of breath, cough, wheeze, stridor GI/: Denies any abdominal pain, nausea, vomiting, diarrhea, bright red blood per rectum, melanotic stools, urinary frequency, urinary retention, dysuria, hematuria MSK: Denies any joint pain, muscle pains, swelling Skin: Positive left breast pain/redness Neuro: Denies any headache, lightheadedness, dizziness, fainting, weakness Psych: Denies SI/HI Patient History Medical History (Updated 09/24/25 @ 19:08 by Mina Ellis DO) Ovarian cyst Surgical History (Updated 07/13/24 @ 14:38 by Emma Cuellar RN) H/O wrist surgery Family History (Updated 07/13/24 @ 14:41 by Emma Cuellar RN) Mother Hypotension Father Hypertension Skin cancer (melanoma) Grandmother Polycystic kidney disease Social History marital status: details: : Jake Baker number of children: 0 household members: spouse lives independently: Yes caregiver/support person: No housing: house pets and animals: No education level: college occupational status: employed current occupational exposures/hazards: No special treva needs: No travel history: other seatbelt use: always helmet use: Yes (Bikes, always wears helmet ) water heater temp set < 120 deg: Yes working smoke detector in home: Yes fire extinguisher in home: Yes carbon monox detector in home: Yes firearms in home: Yes firearms unloaded and locked: Yes do you feel safe at home: Yes Smoking Status: Never smoker second hand exposure: No alcohol intake: never substance use type: does not use during the past year weight has: remained stable well-balanced diet: daily or most days daily servings fruits/ve or more times/day caffeine: No Type(s) of exercise: walking, bicycling and weight lifting frequency: 5-6 times per week Smoking Status: Never smoker Exam Narrative Exam Narrative: General: Cooperative, well-developed, not in acute distress HEENT: Normocephalic, atraumatic, PERRLA, normal sclera, eyelids normal Neck: Active full range of motion, atraumatic Chest: Normal to inspection, negative crepitus, no overlying erythema ecchymosis Respiratory: Normal respiratory effort, not in acute respiratory distress, clear to auscultation bilaterally negative cough, wheeze, tachypnea, rhonchi, rales Cardiology: Regular rate rhythm negative gallop, murmur, rubs GI/: No tenderness to palpation, soft, non rigid, normal to inspection, exam deferred MSK: Full active range of motion in all 4 extremities, atraumatic, no tenderness to palpation of any bony prominences Skin: Mild erythema noted to the inferior aspect of the left breast Neuro: Alert awake oriented x3, moves all 4 extremities spontaneously, cranial nerves intact, able to answer all questions appropriately follows commands ap propriately Psych: Cooperative, negative suicidal or homicidal ideations Initial Vital Signs Initial Vital Signs: Vital Signs Temperature 97.9 F 09/24/25 16:32 Pulse Rate 86 09/24/25 16:32 Respiratory Rate 16 09/24/25 16:32 Blood Pressure 109/75 09/24/25 16:32 Pulse Oximetry 100 09/24/25 16:32 Oxygen Delivery Method Room Air 09/24/25 16:32 Course Vital Signs Vital signs: Vital Signs - 8 hr 09/24/25 16:32 Temperature 97.9 F Pulse Rate 86 Respiratory Rate 16 Blood Pressure 109/75 Pulse Oximetry 100 Oxygen Delivery Method Room Air MDM - Fever MDM Narrative Medical decision making narrative: 30-year-old female without any significant past medical history comes into the ED from home for evaluation of left breast redness tenderness mild fevers she states that this started yesterday and into today. On my exam there is some mild erythema to the inferior aspect of the left breast, no other gross deformities noted, treat patient for mastitis. Patient was given return precautions verbalized understanding agrees to being discharged home with outpatient follow up Discharge Plan Departure Patient Disposition: Home Clinical Impression: Mastitis Instructions: DI for Mastitis Activity Restrictions/Additional Instructions: Please follow up with your primary care doctor and your OBGYN Please read the discharge instructions sheet carefully and bring all papers to all doctor follow-up visits, as it may contain information that your doctor may want to see. Disease processes change and evolve, if your symptoms worsen or if you develop any new symptoms that are concerning to you please return for evaluation. Your evaluation today does not show any evidence of any life- threatening/serious illnesses requiring admission to the hospital or surgery. Please follow-up with your doctor for re-evaluation in approximately 1 day. Seek immediate medical attention for any worrisome symptoms. *If you do not have a primary care provider please contact the [facility] Resource line at [phone]. They will ask some questions about your medical history and help get you set up with a doctor in the community. Prescriptions: New cephalexin 500 mg capsule 500 mg PO Q6H 14 Days Qty: 56 0RF No Action fexofenadine-pseudoephedrine [Maria Luisa-D 12 Hour] 60-120 mg tablet extended release 12 hr 1 tab PO Q12H PRN Classic 28 mg iron- 800 mcg tablet PO Fish oil 1,,000mg PO Choline 800mg PO Referrals: Tori Cortes MD [Primary Care Provider, Family Practice] Stand Alone Forms: Patient Portal/API
--- NOTE | 2025-09-24 19:15 | PC.NURSE ---
pt is breast feeding and now is having left breast pain with redness and low grade temp
== END 2025-09-24 19:40 | disposition home or self-care (01) ==
PROVIDERS: Emergency Provider Student in an Organized Health Care Education/Training Program; PCP Student in an Organized Health Care Education/Training Program
DX: N61.0 Mastitis without abscess (principal)
CPT/HCPCS: 99283